=== PATIENT | female | born 1975 | race Caucasian/White ===

== ENCOUNTER → 2024-09-09 | Outpatient (CLI) | payer OTHER, SELFPAY ==
--- NOTE | 2024-09-09 08:46 | AAVD_ITS ---
Reason For Study: IVC/Illiac vein stents Inferior Vena Cava Proximal inferior vena cava measures 1.89x1.89 cm. in the cross-sectional axis. Mid inferior vena cava measures 1.8x1.9 cm. in the cross-sectional axis. Distal inferior vena cava measures 1.44x1.41 cm. in the cross-sectional axis. Proximal inferior vena cava measures 1.91 cm. in the longitudinal axis. Mid inferior vena cava measures 1.71 cm. in the longitudinal axis. Distal inferior vena cava measures 1.36 cm. in the longitudinal axis. The inferior vena cava has spontaneous, phasic flow throughout. Left Common Iliac Vein Left common iliac vein measures 1.04x1.08 cm. in the cross-sectional axis. Left common iliac vein measures 1.09 cm. in the longitudinal axis. The left common iliac vein has spontaneous, phasic flow throughout. Stent noted in Left Common Illiac Vein. Right Common Iliac Vein Right common iliac vein measures 1.15x1.25 cm. in the cross-sectional axis. Right common iliac vein measures 1.18 cm. in the longitudinal axis. The right common iliac vein has spontaneous, phasic flow throughout. Stent noted in Right Common Illiac Vein. Procedure Aorta IVC Iliac vasculature or bypass grafts [id number]. Exam performed in department. VL/Abd Aortic/IVC Duplex scan Interpretation Summary IVC and bilateral iliac vein stents patent with normal venous flow pattern. Ordering Physician: Eder Flores Referring Physician: Lacho Calzada DO Performed By: Nova Judd RVT and Student
== END | disposition home or self-care (01) ==
PROVIDERS: PCP Family Medicine; Referring Provider Surgery Trauma Surgery; Visit Provider Surgery Trauma Surgery
DX: I87.1 Compression of vein (principal)
CPT/HCPCS: 93978

== ENCOUNTER → 2024-11-24 | Outpatient (CLI) | payer OTHER, SELFPAY ==
--- NOTE | 2024-11-24 08:01 | AAVD_ITS ---
Reason For Study Reason For Study: S/P iliac vein stents Inferior Vena Cava Proximal inferior vena cava measures 1.19 x 2.32 cm. in the cross-sectional axis. Proximal inferior vena cava measures 1.11 cm. in the longitudinal axis. Mid inferior vena cava measures 0.74 x 1.45 cm. in the cross-sectional axis. Mid inferior vena cava measures 0.85 cm. in the longitudinal axis. Iliac stents noted in the distal IVC. IVC measures 2.53 x 1.57 x 1.76 cm. Rt stent measures 1.16 x 1.31 x 1.26 cm. Lt stent measures 0.83 x 0.73 x 0.99 cm. The inferior vena cava has spontaneous, phasic flow throughout. Left Common Iliac Vein Left common iliac vein measures 1.26 x 1.21 cm. in the cross-sectional axis. Left common iliac vein measures 1.20 cm. in the longitudinal axis. The left common iliac vein has spontaneous, phasic flow throughout. Stent noted in Left Common Illiac Vein. Right Common Iliac Vein Right common iliac vein measures 1.41 x 1.41 cm. in the cross-sectional axis. Right common iliac vein measures 1.36 cm. in the longitudinal axis. The right common iliac vein has spontaneous, phasic flow throughout. Stent noted in Right Common Illiac Vein. Procedure Aorta IVC Iliac vasculature or bypass grafts [id number]. Exam performed in department. VL/Abd Aortic/IVC Duplex scan Interpretation Summary Patent inferior vena cava and bilateral iliac vein stents with normal venous fl ow pattern. Ordering Physician: Terri Duggan Referring Physician: Allegra Spencer Performed By: Nova Judd RVT
== END | disposition home or self-care (01) ==
LOC: CVS 07:56
PROVIDERS: PCP Family Medicine; Referring Provider Physician Assistant; Visit Provider Physician Assistant
DX: I87.1 Compression of vein (principal)
CPT/HCPCS: 93978

== ENCOUNTER → 2025-03-09 | Outpatient (CLI) | payer OTHER, SELFPAY ==
--- NOTE | 2025-03-09 08:05 | VDLE_ITS ---
Reason For Study Reason For Study: Pain RIGHT LEFT CFV is compressible, spontaneous, phasic, competent No flow noted in the left EIV. and demonstrates normal augmentation. GSV is normal. Procedure CFV is compressible, spontaneous, phasic, competent, This is a venous duplex using B-mode, color flow and and demonstrates normal augmentation. spectral Doppler. FV is compressible, spontaneous, phasic, competent Exam performed in department. and demonstrates normal augmentation. POP V is compressible, spontaneous, phasic, competent and demonstrates normal augmentation. T/P Trunk is compressible. PTV is compressible. LT PerV is compressible. VL/Venous Duplex US, Unilateral Interpretation Summary Acute deep vein thrombosis noted in the left external iliac vein Ordering Physician: Terri Duggan Referring Physician: Allegra Spencer Performed By: Megan Butcher RVT
--- NOTE | 2025-03-09 08:05 | AAVD_ITS ---
Reason For Study Reason For Study: S/P Iliac Vein Stents Inferior Vena Cava Proximal inferior vena cava measures 2.15x1.85 cm. in the cross-sectional axis. Proximal inferior vena cava measures 1.98 cm. in the longitudinal axis. Mid inferior vena cava measures 1.78x1.69 cm. in the cross-sectional axis. Mid inferior vena cava measures 1.73 cm. in the longitudinal axis. Distal inferior vena cava measures 1.12x1.16 cm. in the cross-sectional axis. Distal inferior vena cava measures 1.15 cm. in the longitudinal axis. The inferior vena cava has spontaneous, phasic flow throughout. Left Common Iliac Vein Left common iliac vein measures 1.29x1.48 cm. in the cross-sectional axis. Left common iliac vein measures 1.27 cm. in the longitudinal axis. Lt CIV stent noted. No flow noted in the Lt iliac vein stent. Right Common Iliac Vein Right common iliac vein measures 1.45x1.52 cm. in the cross-sectional axis. Right common iliac vein measures 1.46 cm. in the longitudinal axis. The right common iliac vein has spontaneous, phasic flow throughout. Rt CIV stent noted. Procedure Aorta IVC Iliac vasculature or bypass grafts [id number]. Exam performed in department. VL/Abd Aortic/IVC Duplex scan Interpretation Summary Left iliac vein stent with no flow visualized. Inferior vena cava and right iliac vein stent patent with normal venous flow pa ttern. Ordering Physician: Terri Duggan Referring Physician: Allegra Spencer DO Performed By: Megan Butcher RVT
== END | disposition home or self-care (01) ==
LOC: CVS 08:02
PROVIDERS: PCP Family Medicine; Referring Provider Physician Assistant; Visit Provider Physician Assistant
DX: I87.1 Compression of vein (principal); I82.409 Acute embolism and thrombosis of unspecified deep veins of unspecified lower extremity
CPT/HCPCS: 93971; 93978

== ENCOUNTER 2025-03-30 13:10 | Inpatient (IN) | payer OTHER, SELFPAY ==
[2025-03-27 09:15] LABS: Hematocrit 31.9 % (37-47); Hemoglobin 9.7 g/dL (12.0-15.0); Mean Corp Hgb Conc 30.4 g/dL (32-36); Mean Corpuscular Volume 79.9 fL (81-99); Mean Platelet Vol. 9.4 fl (6.2-12.0); Platelet Count 348 K/mm3 (150-450); RBC Distribution Width CV 18.2 % (11.6-14.6); RBC Distribution Width SD 52.7 fl (35.1-43.9); Red Blood Count 3.99 M/mm3 (4.2-5.4); White Blood Count 5.6 K/mm3 (4.4-11.0)
[2025-03-27 10:04] LABS: Anion Gap 11 (5-15); BUN 15 mg/dL (4-19); BUN/Creat Ratio 16.1 RATIO (10-20); Calcium,Total 8.8 mg/dL (7.6-11.0); Carbon Dioxide 21.3 mmol/L (21.0-32.0); Chloride 106 mmol/L (98-108); Glucose 114 mg/dL (70-99); Potassium 3.9 mmol/L (3.3-5.1)
[2025-03-30] VITALS (20 sets, daily range): BP systolic 107–135; BP diastolic 62–97; PULSE 65–104; RESP 14–18; TEMP 35.9–36.9; O2SAT 98–100; BMI 24.2; BMI 24.8
[2025-03-30 08:54] LABS: Internal QC Validated? YES +Cl - CLEAR BKGD
[2025-03-30 08:55] LABS: Pregnancy, Urine Negative Negative; Record Kit Lot#,Urine Preg 0000947241
[2025-03-30] MEDS: Lactated Ringers 1,000 ML 15 ML IV (09:07)
[2025-03-30 14:56] LABS: ACT Activated Clotting Time 210 sec (74-137)
[2025-03-30 14:56] LABS: ACT Activated Clotting Time 181 sec (74-137)
[2025-03-30] MEDS: HEPARIN/D5w 25,000 UNITS 25,000 UNITS/250 ML IV.SOLN. 5 UNITS CONT INF (15:05)
[2025-03-30] MEDS: Cyanocobalamin (B12) 1,000 MCG/ML Vial 1000 MCG IM (16:15)
[2025-03-30] MEDS: HEPARIN/D5w 25,000 UNITS 25,000 UNITS/250 ML IV.SOLN. 10 UNITS CONT INF (18:05)
[2025-03-30 21:10] LABS: Partial Thromboplast Time 151.6 Seconds (24.1-36.2)
[2025-03-31 03:00] VITALS: PULSE 66
[2025-03-31 04:43] VITALS: BP 115/72; PULSE 84; RESP 16; TEMP 36.9; O2SAT 96
[2025-03-31 06:06] LABS: Hematocrit 28.2 % (37-47); Hemoglobin 8.7 g/dL (12.0-15.0); Immature Granulocytes Count 0.040 X10^3/uL (0.0-0.0); Mean Corp Hgb Conc 30.9 g/dL (32-36); Mean Corpuscular Volume 79.0 fL (81-99); Mean Platelet Vol. 9.5 fl (6.2-12.0); NRBC Flagged by Analyzer 0 % (0-5); Platelet Count 333 K/mm3 (150-450); RBC Distribution Width CV 17.5 % (11.6-14.6); RBC Distribution Width SD 50.6 fl (35.1-43.9); Red Blood Count 3.57 M/mm3 (4.2-5.4); White Blood Count 9.6 K/mm3 (4.4-11.0)
[2025-03-31 06:17] LABS: Anion Gap 11 (5-15); BUN 10 mg/dL (4-19); BUN/Creat Ratio 11.3 RATIO (10-20); Calcium,Total 8.7 mg/dL (7.6-11.0); Carbon Dioxide 21.0 mmol/L (21.0-32.0); Chloride 106 mmol/L (98-108); Estimated Creatinine Clearance 72.83 ml/min (50-250); Glucose 116 mg/dL (70-99); Potassium 3.8 mmol/L (3.3-5.1)
[2025-03-31 07:41] LABS: Partial Thromboplast Time 46.8 Seconds (24.1-36.2)
[2025-03-31 08:30] VITALS: BP 116/68; PULSE 79; RESP 16; TEMP 36.6; O2SAT 99
[2025-03-31] MEDS: 0.9% Saline Lock 10 ML Syringe IV (08:31)
[2025-03-31] MEDS: APIXABAN 5 MG TABLET PO (08:31)
[2025-03-31 08:43] VITALS: BP 116/68; PULSE 79; RESP 16; TEMP 36.6; O2SAT 99
== END 2025-03-31 10:56 | disposition home or self-care (01) | DRG 271 ==
LOC: SDC 14:57 → PCU 14:57
PROVIDERS: Student in an Organized Health Care Education/Training Program; Admitting Provider Surgery Trauma Surgery; PCP Family Medicine; Referring Provider Surgery Trauma Surgery; Visit Provider Surgery Trauma Surgery
PROC: 06CD3ZZ Extirpation of Matter from Left Common Iliac Vein, Percutaneous Approach (ICD-10-PCS; principal; 2025-03-30 09:55)
DX: I82.422 Acute embolism and thrombosis of left iliac vein (principal); T82.856A Stenosis of peripheral vascular stent, initial encounter; I87.1 Compression of vein; D51.0 Vitamin B12 deficiency anemia due to intrinsic factor deficiency; X58.XXXA Exposure to other specified factors, initial encounter; Z79.01 Long term (current) use of anticoagulants; Z79.02 Long term (current) use of antithrombotics/antiplatelets; Z86.711 Personal history of pulmonary embolism; Z86.718 Personal history of other venous thrombosis and embolism
CPT/HCPCS: 36010; 36415; 37187; 37248; 37252; 37253; 75825; 76937; 80048; 81025; 85025; 85027; 85347; 85730; 94668; 99252; C1753; C1757; C1769; C1894; Q9967; A4216; C1725; C1773; G0463; J2405; J3420